=== PATIENT | female | born 1940 | race Caucasian/White ===

== ENCOUNTER 2020-07-07 10:32 | Emergency (ER) | payer MEDICARE, OTHER ==
--- NOTE | 2020-07-07 10:45 | EDM.PDOC ---
ED HPI GENERAL MEDICAL PROBLEM - General Stated Complaint: STROKE Time Seen by Provider: 07/07/20 10:50 Source of Information: Reports: Patient, EMS, RN History Limitations: Reports: No Limitations - History of Present Illness INITIAL COMMENTS - FREE TEXT/NARRATIVE: ED report patient fell last night sometime between 6 and 10pm. Patient reports falling 2 days ago, Son reports last heidi. and found around 10pm on BR floor, able to get moved to bedroom and unable to get her up off floor so caovered with blanket. Son reported attempting to get assistance moving around 10am today and unable to get nail expert on phone so finally called EMS> EMS reported noting some confusion and drift of right arm on scene. No drift on arrival equal strenth upper, speech clear. Son reports periods of confusion. Hx dementia, worse at night time. Has been progressive last couple of years. Chronic anticoag with coumadin Last sen in clinic one week ago; Takes between 4 and 6 mg daily. INR last week 3.1. Generalized Pain Score (Numeric/FACES): 6 - Related Data Allergies Allergy/AdvReac Type Severity Reaction Status Date / Time vancomycin Allergy Hives Verified 06/01/15 19:36 Home Meds: Home Meds Aspirin [Fabi Chewable Aspirin] 81 mg PO DAILY 03/31/14 [History] Diltiazem [Cardizem CD] 360 mg PO DAILY 03/31/14 [History] Furosemide 20 mg PO DAILY 03/31/14 [History] Levothyroxine Sodium 25 mcg PO DAILY 03/31/14 [History] Metoprolol Succinate [Toprol XL 50mg] 100 mg PO DAILY 03/31/14 [History] Potassium Chloride 10 meq PO BID 03/31/14 [History] Brimonidine Tartrate 1 drop EYEBOTH BID 10/30/14 [History] Fluticasone Propionate [Flonase] 1 squirt NASBOTH ASDIRECTED 10/30/14 [History] Hydrocodone/Acetaminophen [Hydrocodon-Acetaminophen 5-325] 10 tab PO DAILY 10/30/14 [History] Multivitamin with Minerals [Ernie Multivitamin with Mineral] 1 tab PO DAILY 10/30/14 [History] Warfarin Sodium [Jantoven] 4 mg PO ASDIRECTED 10/30/14 [History] Omeprazole [Prilosec] 20 mg PO DAILY 06/01/15 [History] Warfarin [Coumadin] 6 mg PO ASDIRECTED 06/01/15 [History] Calcium Carbonate/Vitamin D3 [Calcium 600-Vit D3 400 Tablet] 1 each PO DAILY 07/07/20 [History] Cholecalciferol (Vitamin D3) [Vitamin D3] 25 mcg PO DAILY 07/07/20 [History] Escitalopram [Lexapro] 10 mg PO BEDTIME 07/07/20 [History] Gabapentin [Neurontin] 300 mg PO BID 07/07/20 [History] Memantine [Namenda] 10 mg PO BID 07/07/20 [History] Pravastatin [Pravachol] 20 mg PO BEDTIME 07/07/20 [History] busPIRone [Buspar] 2.5 mg PO BID 07/07/20 [History] timoloL maleate [Timoptic 0.5% Ophth Soln] 1 drop EYELF BID 07/07/20 [History] traZODone HCl [Trazodone HCl] 100 mg PO BEDTIME 07/07/20 [History] Past Medical History HEENT History: Reports: Cataract, Glaucoma, Macular Degeneration Cardiovascular History: Reports: Heart Valve Replacement, Hypertension Gastrointestinal History: Reports: GERD [employer] History: Reports: Psychiatric History: Reports: Depression Endocrine/Metabolic History: Reports: Hypothyroidism, Obesity/BMI 30+ Oncologic (Cancer) History: Reports: Breast Dermatologic History: Reports: Cellulitis - Past Surgical History HEENT Surgical History: Reports: Cataract Surgery Cardiovascular Surgical History: Reports: Valve Replacement Social & Family History - Family History Family Medical History: No Pertinent Family History - Caffeine Use Caffeine Use: Reports: Coffee, Tea - Living Situation & Occupation Living situation: Reports: , Alone Occupation: Retired [employer] [employer] [facility] - Review of Systems Review Of Systems: See Below Constitutional: Reports: No Symptoms HEENT: Reports: No Symptoms Respiratory: Reports: No Symptoms Cardiovascular: Reports: No Symptoms GI/Abdominal: Reports: No Symptoms. Denies: Abdominal Pain : Reports: Incontinence (chronic) Musculoskeletal: Reports: Joint Pain (right ankle) Skin: Reports: Bruising (right ankle left great toe) Neurological: Reports: Other (oreiented person place. speech clear PEERL 3mm equal strenth bilateral upper extremities. no drift upper or left lower, unable to assess on right lower due to injury.). Denies: Headache, Numbness, Trouble Speaking ED EXAM, GENERAL - Physical Exam Exam: See Below Exam Limited By: No Limitations General Appearance: Alert, No Apparent Distress Ears: Normal External Exam, Hearing Grossly Normal Nose: Normal Inspection Throat/Mouth: Normal Inspection Head: Atraumatic, Normocephalic Neck: Normal Inspection, Full Range of Motion Respiratory/Chest: No Respiratory Distress, Lungs Clear, Normal Breath Sounds Cardiovascular: Normal Peripheral Pulses, Regular Rate, Rhythm. No: No Edema (right) Peripheral Pulses: 0: Posterior Tibial (L), Posterior Tibial (R), Dorsalis Pedis (L), Dorsalis Pedis (R) GI/Abdominal: Normal Bowel Sounds, Soft Back Exam: No: CVA Tenderness (L), Decreased Range of Motion, Paraspinal Tendern ess Extremities: Joint Swelling (right ankle swollen), Other (blilateral decreased pulses. capillary refill 3+ bilteral. bruising left great toe. Swelling right ankle mild deformity. ). No: Normal Inspection, Normal Range of Motion Course - Vital Signs Last Recorded V/S: Last Vital Signs Temp 97.6 F 07/07/20 10:50 Pulse 65 07/07/20 10:50 Resp 20 07/07/20 10:50 BP 149/78 H 07/07/20 10:50 Pulse Ox 98 07/07/20 10:50 - Orders/Labs/Meds Labs: Laboratory Tests 07/07/20 07/07/20 07/07/20 Range/Units 10:59 10:59 10:59 WBC 10.9 H (5.0-10.0) 10^3/uL RBC 4.24 (4.2-5.4) 10^6/uL Hgb 13.8 (12.0-16.0) g/dL Hct 40.2 (37.0-47.0) % MCV 94.8 (80-100) fL MCH 32.5 (27.0-34.0) pg MCHC 34.3 (33.0-35.0) g/dL Plt Count 133 L (150-450) 10^3/uL Neut % (Auto) 78.7 H (42.2-75.2) % Lymph % (Auto) 9.9 L (20.5-50.1) % Parmer % (Auto) 10.5 H (2-8) % Eos % (Auto) 0.4 L (1.0-3.0) % Baso % (Auto) 0.5 (0.0-1.0) % PT 38.4 H D (9.0-12.0) SEC INR 4.1 H (0.9-1.2) Sodium 140 (136-145) mmol/L Potassium 3.9 (3.5-5.1) mmol/L Chloride 99 (98-107) mmol/L Carbon Dioxide 30 (21-32) mmol/L Anion Gap 14.9 H (7-13) mEq/L BUN 14 (7-18) mg/dL Creatinine 1.02 (0.55-1.02) mg/dL Est Cr Clr Drug Dosing 34.85 mL/min Estimated GFR (MDRD) 53 BUN/Creatinine Ratio 13.7 (No establ ref range) Glucose 140 H (74-99) mg/dL Calcium 9.6 (8.5-10.1) mg/dL Total Bilirubin 1.3 H (0.2-1.0) mg/dL AST 28 (15-37) U/L ALT 21 (14-59) U/L Alkaline Phosphatase 73 (46-116) U/L Creatine Kinase 199 H (16-191) U/L Troponin I < 0.017 (0.000-0.056) ng/mL Total Protein 7.2 (6.4-8.2) g/dL Albumin 4.3 (3.4-5.0) g/dL Globulin 2.9 Albumin/Globulin Ratio 1.5 Amylase 33 (25-115) U/L SARS-CoV-2 RNA (MACIEL) (NEGATIVE) 07/07/20 Range/Units 11:15 WBC (5.0-10.0) 10^3/uL RBC (4.2-5.4) 10^6/uL Hgb (12.0-16.0) g/dL Hct (37.0-47.0) % MCV (80-100) fL MCH (27.0-34.0) pg MCHC (33.0-35.0) g/dL Plt Count (150-450) 10^3/uL Neut % (Auto) (42.2-75.2) % Lymph % (Auto) (20.5-50.1) % Parmer % (Auto) (2-8) % Eos % (Auto) (1.0-3.0) % Baso % (Auto) (0.0-1.0) % PT (9.0-12.0) SEC INR (0.9-1.2) Sodium (136-145) mmol/L Potassium (3.5-5.1) mmol/L Chloride (98-107) mmol/L Carbon Dioxide (21-32) mmol/L Anion Gap (7-13) mEq/L BUN (7-18) mg/dL Creatinine (0.55-1.02) mg/dL Est Cr Clr Drug Dosing mL/min Estimated GFR (MDRD) BUN/Creatinine Ratio (No establ ref range) Glucose (74-99) mg/dL Calcium (8.5-10.1) mg/dL Total Bilirubin (0.2-1.0) mg/dL AST (15-37) U/L ALT (14-59) U/L Alkaline Phosphatase (46-116) U/L Creatine Kinase (16-191) U/L Troponin I (0.000-0.056) ng/mL Total Protein (6.4-8.2) g/dL Albumin (3.4-5.0) g/dL Globulin Albumin/Globulin Ratio Amylase (25-115) U/L SARS-CoV-2 RNA (MACIEL) Negative (NEGATIVE) Meds: Medications Discontinued Medications Generic Name Dose Route Start Last Admin Trade Name Freq PRN Reason Stop Dose Admin Fentanyl 50 mcg 07/07/20 11:35 07/07/20 11:41 Sublimaze IVPUSH 07/07/20 11:36 50 mcg ONETIME ONE Administration Departure - Departure Time of Disposition: 13:10 Disposition: DC/Tfer to Acute Hospital 02 Condition: Fair Clinical Impression: History of dementia, Chronic anticoagulation Closed right ankle fracture Qualifiers: Encounter type: initial encounter Qualified Code(s): S82.891A - Other fracture of right lower leg, initial encounter for closed fracture Fall in home Qualifiers: Encounter type: initial encounter Qualified Code(s): W19.XXXA - Unspecified fall, initial encounter; Y92.009 - Unspecified place in unspecified non- institutional (private) residence as the place of occurrence of the external cause - Discharge Information Forms: ED Department Discharge
--- NOTE | 2020-07-07 11:04 | CT ---
PROCEDURE INFORMATION: Exam: CT Head Without Contrast Exam date and time: 07/07/2020 10:39 AM Age: 79 years old Clinical indication: Injury or trauma; Fall; Blunt trauma (contusions or hematomas); Consciousness not specified; Additional info: Fall at home, right weakness TECHNIQUE: Imaging protocol: Computed tomography of the head without contrast. Radiation optimization: All CT scans at this facility use at least one of these dose optimization techniques: automated exposure control; mA and/or kV adjustment per patient size (includes targeted exams where dose is matched to clinical indication); or iterative reconstruction. Other technique: STROKE PROTOCOL was implemented. 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 There is moderate central and cortical atrophy and small vessel ischemic disease. There is an old left periventricular infarct. There is no evidence of intracranial blood. There are couple calcifications noted within the right posterior parietal lobe which are stable. Cerebral ventricles: No ventriculomegaly. Bones/joints: Unremarkable. No acute fracture. Paranasal sinuses: Visualized sinuses are unremarkable. No fluid levels. Mastoid air cells: Visualized mastoid air cells are well aerated. Soft tissues: Unremarkable. IMPRESSION: No acute intracranial abnormality. Chronic changes. ASSESSMENT: ASPECTS ([place] Stroke Program Early CT Score) is 10.
--- NOTE | 2020-07-07 11:06 | CT ---
PROCEDURE INFORMATION: Exam: CT Pelvis Without Contrast; Skeletal Exam date and time: 07/07/2020 10:39 AM Age: 79 years old Clinical indication: Pelvic pain; Additional info: Fall at home TECHNIQUE: Imaging protocol: Computed tomography images of the pelvis without contrast. Exam focused on the skeletal structures. Radiation optimization: All CT scans at this facility use at least one of these dose optimization techniques: automated exposure control; mA and/or kV adjustment per patient size (includes targeted exams where dose is matched to clinical indication); or iterative reconstruction. COMPARISON: No relevant prior studies available. FINDINGS: Bones/joints: Moderate degenerative changes are present within the hip joints bilaterally. Moderate to advanced degenerative changes are present within the sacroiliac joints. Moderate to advanced degenerative changes noted in the lower lumbar spine. No fractures are identified. Alignment is anatomic. Pubic rami appear to be intact. Moderate grade degenerative changes are present at the symphysis pubis. Soft tissues: Calcified fibroids are present within the uterus. The urinary bladder appears to be slightly distended. No free fluid or mass noted within the pelvis. IMPRESSION: Degenerative change as above. No acute fracture or subluxation identified.
[2020-07-07 11:10] VITALS: BP 149/78; PULSE 65
--- NOTE | 2020-07-07 11:30 | CR ---
PROCEDURE INFORMATION: Exam: XR Right Ankle Exam date and time: 07/07/2020 11:17 AM Age: 79 years old Clinical indication: Pain; Ankle; Right; Additional info: Fall at home TECHNIQUE: Imaging protocol: XR Right ankle. Views: 1 or 2 views. COMPARISON: No relevant prior studies available. FINDINGS: Bones/joints: Moderately offset fractures present of the distal fibula above the syndesmosis. There is also a fracture through the medial malleolus with medial displacement of the tibia relative to the talus. Findings compatible fracture dislocation of the ankle. Moderate to advanced degenerative changes are present within the ankle joint. Milder degenerative changes are present within the subtalar joints. Orthopedic screws are present within the 1st metatarsal. Soft tissues: Marked soft tissue swelling is present. IMPRESSION: 1. Complex fracture dislocation of the right ankle.
[2020-07-07] MEDS ORDERED: fentaNYL 100 MCG/2 ML SDV IVPUSH ONE (11:35)
[2020-07-07 11:46] LABS: ANION GAP 14.9 mEq/L (7-13); CHLORIDE,CL 99 mmol/L (98-107); SODIUM,NA 140 mmol/L (136-145)
--- NOTE | 2020-07-07 12:04 | CT ---
PROCEDURE INFORMATION: Exam: CT Cervical Spine Without Contrast Exam date and time: 07/07/2020 10:39 AM Age: 79 years old Clinical indication: Injury or trauma; Fall; Blunt trauma; Additional info: Fall at home, right side weakness TECHNIQUE: Imaging protocol: Computed tomography images of the cervical spine without contrast. Radiation optimization: All CT scans at this facility use at least one of these dose optimization techniques: automated exposure control; mA and/or kV adjustment per patient size (includes targeted exams where dose is matched to clinical indication); or iterative reconstruction. COMPARISON: No relevant prior studies available. FINDINGS: Bones/joints: There are sternal sutures. There is a listhesis C3 1 mm anterior to C4. There is listhesis C4 1.5 mm anterior to C5. There is fusion possibly a Klippel-Feil deformity at C5/6. There is 2.5 mm listhesis C6/7. There is 2.5 mm listhesis C7/T1. There is 2 mm listhesis T1/2. Discs/Spinal canal/Neural foramina: C2/3: No acute abnormality. C3/4: Aside for this listhesis there is no obvious disc protrusion or extrusion. There is moderate to severe foraminal narrowing due to spurring on the right. The left foramina appears normal. C4/5: Listhesis. No disc protrusion or extrusion. Moderate foraminal narrowing due to spurring and listhesis bilaterally. C5/6: No acute abnormality. C6/7: Listhesis. Mild to moderate foraminal narrowing on the right due to listhesis and arthritis. The left foramina is unremarkable. C7/T1: No acute abnormality aside for the listhesis. Oropharynx: There is a piece of metal artifact noted just superior to the tongue within the oropharynx. This could be related to the hard palate. Thyroid: There is heterogenicity of the thyroid possibly a goiter. Lungs: Lung apices are normal. Vasculature: The descending aorta may be aneurysmal at 33 mm. Soft tissues: Unremarkable. IMPRESSION: Multilevel listhesis of unknown etiology. No fracture. Other incidental findings as above.
== END 2020-07-07 13:05 ==
LOC: DL.ED 10:32
DX: S82.831A Other fracture of upper and lower end of right fibula, initial encounter for closed fracture (principal); S82.51XA Displaced fracture of medial malleolus of right tibia, initial encounter for closed fracture; I10 Essential (primary) hypertension; K21.9 Gastro-esophageal reflux disease without esophagitis; F03.90 Unspecified dementia, unspecified severity, without behavioral disturbance, psychotic disturbance, mood disturbance, and anxiety; E03.9 Hypothyroidism, unspecified; E66.9 Obesity, unspecified; Z68.39 Body mass index [BMI] 39.0-39.9, adult; Z88.1 Allergy status to other antibiotic agents; Z79.82 Long term (current) use of aspirin; Z79.899 Other long term (current) drug therapy; Z79.01 Long term (current) use of anticoagulants; Z20.822 Contact with and (suspected) exposure to COVID-19; W19.XXXA Unspecified fall, initial encounter; Y92.009 Unspecified place in unspecified non-institutional (private) residence as the place of occurrence of the external cause
CPT/HCPCS: 36415; 70450; 72125; 72192; 73600; 80053; 82150; 82550; 84484; 85025; 85610; 93005; 96374; 99284; 99285; J3010; U0002